=== PATIENT | female | born 1945 | race Caucasian/White ===

== ENCOUNTER 2020-04-06 16:08 | Emergency (ER) | payer MEDICARE ==
--- NOTE | 2020-04-06 18:19 | EDM.PDOC ---
ED HPI GENERAL MEDICAL PROBLEM - General Chief Complaint: General Stated Complaint: CONFUSED Time Seen by Provider: 04/06/20 18:03 Source of Information: Reports: Patient, Family () History Limitations: Reports: No Limitations - History of Present Illness INITIAL COMMENTS - FREE TEXT/NARRATIVE: Elena is a 75-year-old female presenting to the ED for evaluation of acute con fusion, disorientation that occurred at 1400 hrs. today. She was helping her install an over the stove microwave and while he was holding the unit she was supposed to put the screws in from above to secure it. reports that she started asking questions like "what am I doing up here", "when did we get the microwave", and "what are we doing?" reports that this lasted until they arrived at the ER several hours later but he approximated was between 2 and 3 hours from the onset of the symptoms. Both the patient and the state that she is back to her baseline at this time. Patient denies any head trauma. She denies any fever, chills, vision changes, headache or dizziness, lightheadedness, nausea, vomiting, or diarrhea. She has had no numbness or tingling. She experienced no weakness or incoordination with movement. She denies having previous symptoms of this. She is only on oxybutynin for overactive bladder. She does not take an aspirin a day. Onset: Sudden - Related Data Allergies Allergy/AdvReac Type Severity Reaction Status Date / Time Penicillins Allergy Cannot Verified 04/06/20 17:17 Remember Home Meds: Home Meds Oxybutynin 5 mg PO DAILY 04/06/20 [History] Past Medical History HEENT History: Reports: Impaired Vision - Infectious Disease History Infectious Disease History: Reports: Chicken Pox, Measles, Mumps - Past Surgical History Female Surgical History: Reports: Hysterectomy Social & Family History - Tobacco Use Tobacco Use Status *Q: Never Tobacco User - Caffeine Use Caffeine Use: Reports: Coffee, Soda - Recreational Drug Use Recreational Drug Use: No ED ROS GENERAL - Review of Systems Review Of Systems: See Below Constitutional: Reports: No Symptoms HEENT: Reports: No Symptoms Respiratory: Reports: No Symptoms Cardiovascular: Reports: No Symptoms Endocrine: Reports: No Symptoms GI/Abdominal: Reports: No Symptoms : Reports: No Symptoms Musculoskeletal: Reports: No Symptoms Skin: Reports: No Symptoms Neurological: Reports: Confusion Psychiatric: Reports: No Symptoms Hematologic/Lymphatic: Reports: No Symptoms Immunologic: Reports: No Symptoms ED EXAM, GENERAL - Physical Exam Exam: See Below Exam Limited By: No Limitations General Appearance: Alert, WD/WN, No Apparent Distress Eye Exam: Bilateral Eye: EOMI, PERRL Throat/Mouth: Normal Inspection, Normal Lips, Normal Teeth, Normal Gums, Normal Oropharynx, Normal Voice, No Airway Compromise Head: Atraumatic, Normocephalic Neck: Normal Inspection, Supple, Non-Tender, Full Range of Motion. No: Carotid Bruit Respiratory/Chest: No Respiratory Distress, Lungs Clear, Normal Breath Sounds, No Accessory Muscle Use, Chest Non-Tender Cardiovascular: Normal Peripheral Pulses, Regular Rate, Rhythm, No Edema, No Gallop, No JVD, No Murmur, No Rub Peripheral Pulses: 2+: Carotid (L), Carotid (R), Radial (L), Radial (R), Posterior Tibial (L), Posterior Tibial (R) GI/Abdominal: Normal Bowel Sounds, Soft, Non-Tender, No Organomegaly, No Distention, No Abnormal Bruit, No Mass (Female) Exam: Deferred Rectal (Female) Exam: Deferred Back Exam: Normal Inspection, Full Range of Motion, NT Extremities: Normal Inspection, Normal Range of Motion, Non-Tender, Normal Capillary Refill, No Pedal Edema Neurological: Alert, Oriented, CN II-XII Intact, Normal Cognition, Normal Gait, Normal Reflexes, No Motor/Sensory Deficits, Memory Loss Recent Events (Patient does not recall the details of the events that occurred at 1400 hrs. today.). No: Inattentive, Confused, Disoriented Psychiatric: Normal Affect, Normal Mood Skin Exam: Warm, Dry, Intact, Normal Color, No Rash Lymphatic: No Adenopathy Course - Vital Signs Last Recorded V/S: Last Vital Signs Temp 36.4 C 04/06/20 17:13 Pulse 78 04/06/20 17:13 Resp 17 04/06/20 17:13 BP 155/69 H 04/06/20 17:13 Pulse Ox 98 04/06/20 17:13 - Orders/Labs/Meds Labs: Laboratory Tests 04/06/20 04/06/20 04/06/20 Range/Units 17:29 18:25 18:25 WBC 6.7 (4.5-11.0) K/uL RBC 4.58 (3.30-5.50) M/uL Hgb 13.4 (12.0-15.0) g/dL Hct 41.7 (36.0-48.0) % MCV 91 (80-98) fL MCH 29 (27-31) pg MCHC 32 (32-36) % Plt Count 212 (150-400) K/uL Neut % (Auto) 77 H (36-66) % Lymph % (Auto) 15 L (24-44) % Chambers % (Auto) 7 H (2-6) % Eos % (Auto) 1 L (2-4) % Baso % (Auto) 1 (0-1) % PT 10.5 (9.5-12.0) sec INR 0.96 (0.80-1.20) APTT 25.0 L (27.0-36.0) sec Sodium (140-148) mmol/L Potassium (3.6-5.2) mmol/L Chloride (100-108) mmol/L Carbon Dioxide (21-32) mmol/L Anion Gap (5.0-14.0) mmol/L BUN (7-18) mg/dL Creatinine (0.6-1.0) mg/dL Est Cr Clr Drug Dosing mL/min Estimated GFR (MDRD) (>60) Glucose (74-106) mg/dL Calcium (8.5-10.1) mg/dL Total Bilirubin (0.2-1.0) mg/dL AST (15-37) U/L ALT (12-78) U/L Alkaline Phosphatase (46-116) U/L C-Reactive Protein (0.0-0.3) mg/dL Total Protein (6.4-8.2) g/dL Albumin (3.4-5.0) g/dL Globulin (2.3-3.5) g/dL Albumin/Globulin Ratio (1.2-2.2) Urine Color Yellow (YELLOW) Urine Appearance Clear (CLEAR) Urine pH 6.5 (5.0-8.0) Ur Specific Laurel 1.015 (1.008-1.030) Urine Protein Negative (NEGATIVE) mg/dL Urine Glucose (UA) Negative (NEGATIVE) mg/dL Urine Ketones Negative (NEGATIVE) mg/dL Urine Occult Blood Negative (NEGATIVE) Urine Nitrite Negative (NEGATIVE) Urine Bilirubin Negative (NEGATIVE) Urine Urobilinogen 0.2 (0.2-1.0) EU/dL Ur Leukocyte Esterase Trace H (NEGATIVE) Urine RBC 0-5 (0-5) Urine WBC 0-5 (0-5) Ur Epithelial Cells Rare Amorphous Sediment Not seen Urine Bacteria Not seen Urine Mucus Not seen 04/06/20 Range/Units 18:25 WBC (4.5-11.0) K/uL RBC (3.30-5.50) M/uL Hgb (12.0-15.0) g/dL Hct (36.0-48.0) % MCV (80-98) fL MCH (27-31) pg MCHC (32-36) % Plt Count (150-400) K/uL Neut % (Auto) (36-66) % Lymph % (Auto) (24-44) % Chambers % (Auto) (2-6) % Eos % (Auto) (2-4) % Baso % (Auto) (0-1) % PT (9.5-12.0) sec INR (0.80-1.20) APTT (27.0-36.0) sec Sodium 142 (140-148) mmol/L Potassium 3.8 (3.6-5.2) mmol/L Chloride 105 (100-108) mmol/L Carbon Dioxide 29 (21-32) mmol/L Anion Gap 7.6 (5.0-14.0) mmol/L BUN 15 (7-18) mg/dL Creatinine 1.0 (0.6-1.0) mg/dL Est Cr Clr Drug Dosing 36.68 mL/min Estimated GFR (MDRD) 54 L (>60) Glucose 111 H (74-106) mg/dL Calcium 9.5 (8.5-10.1) mg/dL Total Bilirubin 0.4 (0.2-1.0) mg/dL AST 28 (15-37) U/L ALT 29 (12-78) U/L Alkaline Phosphatase 46 (46-116) U/L C-Reactive Protein < 0.05 (0.0-0.3) mg/dL Total Protein 7.1 (6.4-8.2) g/dL Albumin 3.6 (3.4-5.0) g/dL Globulin 3.5 (2.3-3.5) g/dL Albumin/Globulin Ratio 1.0 L (1.2-2.2) Urine Color (YELLOW) Urine Appearance (CLEAR) Urine pH (5.0-8.0) Ur Specific Laurel (1.008-1.030) Urine Protein (NEGATIVE) mg/dL Urine Glucose (UA) (NEGATIVE) mg/dL Urine Ketones (NEGATIVE) mg/dL Urine Occult Blood (NEGATIVE) Urine Nitrite (NEGATIVE) Urine Bilirubin (NEGATIVE) Urine Urobilinogen (0.2-1.0) EU/dL Ur Leukocyte Esterase (NEGATIVE) Urine RBC (0-5) Urine WBC (0-5) Ur Epithelial Cells Amorphous Sediment Urine Bacteria Urine Mucus - Radiology Interpretation Free Text/Narrative:: CT of the brain without contrast: Normal brain parenchyma for age. No acute findings for stroke, mass, or midline shift. Normal cranium. - Re-Assessments/Exams Free Text/Narrative Re-Assessment/Exam: 04/06/20 20:05 Elena is a 75-year-old female presenting to the ED for evaluation of confusion that occurred around 1400 hrs. today and lasted until around 1700 hrs. involving disorientation and short-term memory difficulty. The patient was in the process of installing a under the [employer] microwave with her when she had sudden onset of her symptoms which included difficulty remembering her tasks and disorientation. Upon arrival to the ED, her symptoms have resolved. She does not have any history for stroke, blood clots, or dementia. She has not had any fever, chills, nausea or vomiting, cough or shortness of breath, chest pain or diarrhea. She has not been around any others with Covid. Her became concerned because of the memory difficulty prompting him to bring her in for evaluation. She is currently on oxybutynin for overactive bladder. Her exam is unremarkable at this time as she is completely neurologically intact. Labs were obtained including a urinalysis which is unremarkable. She had a CBC and comprehensive metabolic panel which were also unremarkable. Her CRP is normal. Because of the concern for either an acute stroke or transient ischemic attack, the patient underwent a CT of the brain without contrast. This failed to demonstrate any acute findings. Overall, based on the symptomatology and lack of evidence for infection, I am concerned that this was a transient ischemic attack. I am going to recommend that the patient take a full aspirin a day from this point moving forward. As her symptoms of fully resolved, I believe she can go home but indications to return to the ED were discussed with the patient and her who are both in agreement with the plan. All questions were answered prior to discharge. Departure - Departure Time of Disposition: 20:09 Disposition: Home, Self-Care 01 Condition: Good Clinical Impression: Transient ischemic attack - Discharge Information *PRESCRIPTION DRUG MONITORING PROGRAM REVIEWED*: Not Applicable *COPY OF PRESCRIPTION DRUG MONITORING REPORT IN PATIENT TAMMIE: Not Applicable Instructions: Transient Ischemic Attack Referrals: Jody Guerrero PA [Primary Care Provider] - Forms: ED Department Discharge Care Plan Goals: I recommend that she start a full aspirin (325 mg) a day from this point moving forward. This should reduce platelet activity and reduce the likelihood of developing clot that can cause transient ischemic attacks. You will likely need further work-up which can be performed through your primary provider including an ultrasound of the carotids to make sure there is not any significant narrowing. Should you develop any repeat symptoms or new symptoms, I would encourage you to return to the ED as soon as possible for reevaluation. Sepsis Event Note (ED) - Evaluation Sepsis Screening Result: No Definite Risk - Focused Exam Vital Signs: Vital Signs Temp Pulse Resp BP Pulse Ox 04/06/20 17:13 36.4 C 78 17 155/69 H 98 04/06/20 16:37 36.4 C 78 17 155/69 H 98 - Problem List & Annotations (1) Transient ischemic attack SNOMED Code(s): 990153059 Code(s): G45.9 - TRANSIENT CEREBRAL ISCHEMIC ATTACK, UNSPECIFIED Status: Acute Priority: High Current Visit: Yes - Problem List Review Problem List Initiated/Reviewed/Updated: Yes
--- NOTE | 2020-04-06 18:51 | CRLCT ---
INDICATION: Intermittent confusion and short-term memory loss. TECHNIQUE: CT head without contrast. COMPARISON: None. FINDINGS: CSF spaces: Within normal limits for age. Brain parenchyma: The arana-white differentiation is normal. No sign of mass, hemorrhage, or midline shift. Skull base and calvarium: The visualized paranasal sinuses and mastoid air cells demonstrate no acute or significant findings. The visualized orbits are grossly unremarkable. No skull fractures. IMPRESSION: Unremarkable noncontrast head CT. Please note that all CT scans at this facility use dose modulation, iterative reconstruction, and/or weight-based dosing when appropriate to reduce radiation dose to as low as reasonably achievable. Dictated by Rodolfo Jones MD @ Apr 06 2020 6:46PM Signed by Dr. Rodolfo Jones @ Apr 06 2020 6:48PM
== END 2020-04-06 20:20 | disposition home or self-care (01) ==
LOC: JP.ED 16:08
DX: G45.9 Transient cerebral ischemic attack, unspecified (principal); Z88.0 Allergy status to penicillin
CPT/HCPCS: 36415; 70450; 80053; 81001; 85025; 85610; 85730; 86140; 99283; 99285-25

== ENCOUNTER 2024-10-15 06:48 | Day surgery (SDC) | payer MEDICARE ==
[2024-10-15] MEDS ORDERED: fentaNYL 50 MCG/ML SDV ONE (07:25)
[2024-10-15] MEDS ORDERED: Propofol 200 MG/20 ML SDV ONE (07:25)
[2024-10-15] MEDS: Lactated Ringers 1,000 ML IV SCH (07:27)
== END 2024-10-15 10:20 | disposition home or self-care (01) ==
LOC: JP.SDS 06:48
PROVIDERS: ATTEND Surgery
DX: Z12.11 Encounter for screening for malignant neoplasm of colon (principal); Z88.0 Allergy status to penicillin
CPT/HCPCS: G0121; J2704; J3010; J7120